=== PATIENT | female | born 1990 | race Caucasian/White ===

== ENCOUNTER → 2020-04-05 11:10 | Outpatient (CLI) | payer BC, SELFPAY ==
--- NOTE | ~2020-04-05 | US_ITS ---
EXAMINATION: US OB transvaginal DATE: 04/05/2020 11:33 INDICATION: History of spontaneous . TECHNIQUE: Real-time transvaginal obstetric ultrasound. FINDINGS: No prior studies for comparison. The uterus measures 7.7 x 5.5 x 6.6 cm. There is an intrauterine gestational sac, with pole rodrigo ntified. The crown rump length measures 1.31 cm, which correlates with a estimated gestational age o f 11/18/2020. There is a subchorionic hemorrhage measuring 1.5 x 0.9 x 1.5 cm. heart tones are i dentified measuring 157 BPM. The left ovary is unremarkable. No free fluid in the pelvis. IMPRESSION: 1. SL IUP with an EGA of 7 weeks, 4 days (EDC by current ultrasound of 11/18/2020). 2: Small subchorionic hemorrhage. Reviewed, dictated and finalized at location B. OMETER TESTER IMPRESSION: 1. SL IUP with an EGA of 7 weeks, 4 days (EDC by current ultrasound of 1). 2: Small subchorionic hemorrhage.
== END ==
PROVIDERS: Visit Provider Obstetrics & Gynecology
DX: O26.21 Pregnancy care for patient with recurrent pregnancy loss, first trimester (principal); Z3A.01 Less than 8 weeks gestation of pregnancy
CPT/HCPCS: 76817

== ENCOUNTER → 2020-05-03 10:14 | Outpatient (CLI) | payer BC, SELFPAY ==
--- NOTE | ~2020-05-03 | US_ITS ---
EXAMINATION: US OB <= 14 weeks fetus DATE: 05/03/2020 10:36 INDICATION: Subchorionic hematoma during first trimester TECHNIQUE: Real-time pelvic transabdominal and transvaginal ultrasound was performed. COMPARISON: 04/05/2020 FINDINGS: The uterus measures 12.9 x 10.5 8.5 cm. There is an intrauterine gestational sac. No persi stent subchorionic hematoma is identified. A yolk sac is identified. heart motion is identified measuring 156 beats per minute (bpm) by M-mode Doppler. The crown rump length measures 5.2 cm , which correlates with an estimated gestational age of 11 weeks and 6 day(s) (+/-) 7 day(s). The ovaries are not visualized however no adnexal abnormality is seen. There is no free fluid in the pelvis. IMPRESSION: 1. Live intrauterine with an estimated gestational age of 11 weeks and 6 day(s) (+/-) 7 day (s) and an estimated delivery date of 11/16/2020. 2. No persistent subchorionic hematoma identified. Reviewed, dictated and finalized at location A. HAND ENGINEER IMPRESSION: 1. Live intrauterine with an estimated gestational age of 11 weeks an d 6 day(s) (+/-) 7 day(s) and an estimated delivery date of 11/16/2020. 2. No persistent subchorionic hematoma identified.
== END ==
PROVIDERS: Visit Provider Obstetrics & Gynecology
DX: O36.8910 Maternal care for other specified fetal problems, first trimester, not applicable or unspecified (principal); Z3A.11 11 weeks gestation of pregnancy
CPT/HCPCS: 76801